=== PATIENT | male | born 1975 | race Caucasian/White ===

== ENCOUNTER 2020-03-06 09:56 | Inpatient (IN) | payer OTHER, SELFPAY ==
[2020-03-06] VITALS (32 sets, daily range): BP systolic 155–190; BP diastolic 89–117; PULSE 91–124; RESP 18–20; TEMP 36.7–37.1; O2SAT 88–100
--- NOTE | ~2020-03-06 | CT_ITS ---
EXAMINATION: CT abdomen pelvis w con DATE: 03/06/2020 11:39 INDICATION: Abdomen pain for 2 months. Nausea. TECHNIQUE: Computed tomography (CT) of the abdomen and pelvis was performed with 100 cc Omnipaque 350 intravenous contrast. The dose-length product was 1692.45 mGy-cm. Automated exposure control and ite rative reconstruction technique were employed. COMPARISON: None. FINDINGS: Lung bases are unremarkable. No significant pleural or pericardial effusion. Heart size nor mal. No significant vascular abnormality. No lymphadenopathy. There is thickening of the pancreatic head with surrounding fluid and inflammation, consistent with a cute pancreatitis. No evidence for wall off fluid collection to suggest abscess or pseudocyst. Nonobs tructive bowel gas pattern. No pelvic masses or fluid collections. Fatty infiltration of the liver. The spleen is enlarged. Gallbladder is present. Adrenal glands and k idneys are unremarkable. No acute osseous abnormality. Elevated right diaphragm. IMPRESSION: 1. Acute uncomplicated pancreatitis. 2: Splenomegaly. 3: Hepatic steatosis. Reviewed, dictated and finalized at location A.
--- NOTE | ~2020-03-06 | US_ITS ---
EXAMINATION: US right upper quadrant EXAM DATE: 03/06/2020 17:13 INDICATION: Elevated liver enzymes. TECHNIQUE: Multiple grayscale and Doppler images of the abdomen right upper quadrant were obtained (jordan rivero a technologist who performed the scan) and subsequently reviewed. There is no prior study for meghana franklin. FINDINGS: The pancreas is not visualized due to bowel gas. There is echogenic liver parenchyma with poor penet ration, hepatic steatosis. Liver measures 24 cm, enlarged. There are no focal liver lesions identifi ed. There is no evidence of intrahepatic biliary duct dilation. Portal venous flow was seen in the hepatopedal, normal direction and has normal Doppler waveform. No right-sided hydronephrosis. Common bile duct measures 4 mm, which is normal. The gallbladder wall is normal in thickness, with mo derate amount of distention. No sonographic evidence of pericholecystic fluid. There is no cholelit hiases. Technologist performing exam reports patient did not demonstrate sonographic Mad[place]'s sign. Please note that this sign is less reliable in patients who have received pain medication. IMPRESSION: 1. Hepatomegaly. 2. Hepatic steatosis. Reviewed, dictated and finalized at location A.
--- NOTE | ~2020-03-06 | CT_ITS ---
EXAMINATION: CT abdomen pelvis wo con DATE: 03/09/2020 09:19 INDICATION: Abdominal pain. Acute pancreatitis. TECHNIQUE: Computed tomography (CT) of the abdomen and pelvis was performed without intravenous contr ast. Automated exposure control and iterative reconstruction technique were employed. The dose-length product was 1706.69 mGy-cm. COMPARISON: CT abdomen and pelvis 03/06/2020, abdomen ultrasound 03/06/2020 FINDINGS: The visualized portions of the lung bases demonstrate mild atelectasis. Again seen is eleva tion of right hemidiaphragm. There are small pleural effusions. The heart size is normal. No pericard ial effusion. There is diffuse hepatic steatosis with focal sparing in the gallbladder fossa. The gal lbladder is distended. There is mild splenomegaly, which may be secondary to obesity. There is extens shelia fat stranding and a small volume of fluid around the pancreas that extends into the pelvis. The a drenal glands and kidneys are normal. There are no dilated loops of bowel. The appendix is not visual ized. There is mild periportal lymphadenopathy. There is mild thoracolumbar spondylosis. IMPRESSION: 1. Worsened acute interstitial pancreatitis. 2. Persisting gallbladder distention, which may be secondary to fasting or acute cholecystitis. 3. The small pleural effusions. 4. Diffuse hepatic steatosis. 5. Mild splenomegaly, which may be secondary to obesity. 6. Mild periportal lymphadenopathy, likely reactive. Reviewed, dictated and finalized at location E. IMPRESSION: 1. Worsened acute interstitial pancreatitis. 2. Persisting gallbladder distention, which may be secondary to fasting or acut e cholecystitis. 3. The small pleural effusions. 4. Diffuse hepatic steatosis. 5. Mild splenomegaly, which may be secondary to obesity. 6. Mild periportal lymphadenopathy, likely reactive.
--- NOTE | 2020-03-06 10:09 | ED.ABDPAIN ---
HPI - Abdominal Pain General Chief Complaint: Abdominal Pain Stated Complaint: abd pain Time Seen by Provider: 03/06/20 10:00 Source: RN notes reviewed History of Present Illness HPI narrative: Patient presents emergency department from home for abdominal pain. Patient states symptoms began last night. The pain is located in the upper abdomen does not radiate. States it is described as burning in nature associated with nausea denies any fevers or chills chest pain shortness of breath vomiting diarrhea or any other symptoms. Patient states he has had problems with intermittent heartburn over the past couple months. Related Data Allergies Allergy/AdvReac Type Severity Reaction Status Date / Time No Known Allergies Allergy Mild Verified 03/06/20 10:11 Review of Systems Review of Systems: Narrative: Gen.: Denies fevers or chills ENT: Denies congestion Respiratory: Denies shortness of breath or cough CV: Denies chest pain or palpitations GI: See HPI denies burning, urgency, frequency or hematuria Musculoskeletal: Denies back pain or muscle pain Neuro: Denies numbness, tingling, weakness or focal weakness Skin: Denies rash Except as documented, all other systems reviewed and negative [facility] Past Medical History Medical History (Updated 03/06/20 @ 12:48 by Willie Madsen DO) Patient denies significant medical history Surgical History Surgical History (Updated 08/15/19 @ 15:33 by Enresto Hart PA-C) History of appendectomy Social History Social History Smoking status: Current some day smoker Alcohol intake: never Gender identity (if verbalized by the patient): Male Exam Narrative: Exam Narrative: APPEARANCE: No acute distress, nontoxic, resting in bed HEENT: Normocephalic, atraumatic, OMM RESPIRATORY: No respiratory distress, clear to auscultation bilaterally with no rhonchi wheezing or rales CARDIOVASCULAR: RRR s murmur ABDOMINAL: Soft, nondistended, tender palpation epigastric and right upper quadrant, no tenderness in left upper quadrant, right lower quadrant left lower quadrant, no rebound or guarding MUSCULOSKELETAl: Moves all extremities. No clubbing, cyanosis or edema. NEURO: Awake and alert. Following commands, speech normal, no focal deficits SKIN:: Warm, dry. Normal Color PSYCHIATRIC: Normal affect/mood Course Course Emergency Course: Discussed with Dr Cardozo presentation and work-up. Agrees with admission at this time. Request patient be placed on sliding scale for hyperglycemia Discussed with patient and family results of workup and diagnosis. Discussed need for admission. Patient and family understand and agree to current treatment plan Vital Signs Vital signs: Vital Signs Temperature 98.6 F 03/06/20 10:08 Pulse Rate 91 03/06/20 10:08 Respiratory Rate 18 03/06/20 10:08 Blood Pressure 189/116 H 03/06/20 10:08 Pulse Oximetry 99 03/06/20 10:08 Temperature 98.6 F 03/06/20 10:08 Pulse Rate 91 03/06/20 10:08 Respiratory Rate 18 03/06/20 10:08 Blood Pressure 189/116 H 03/06/20 10:08 Pulse Oximetry 99 03/06/20 10:08 MDM - Abdominal Pain Lab Data Result diagrams: 03/06/20 10:41 03/06/20 10:53 Labs: Lab Results 03/06/20 03/06/20 03/06/20 Range/Units 10:11 10:11 10:41 WBC 13.9 H (4.5-10.0) K/mm3 RBC 5.17 (4.6-6.20) M/mm3 Hgb 17.9 (14.0-18.0) g/dL Hct 41.4 L (42.0-52.0) % MCV 80.1 (80-100) fl MCH 34.6 H (26-34) pg MCHC 43.2 H (32-36) g/dl RDW 13.6 (11.5-14.5) % Plt Count 188 (150-375) k/mm3 MPV 11.7 H (7.4-10.4) fl Immature Gran % (Auto) 0.9 H (0-0.5) % Neut % (Auto) 84.9 H (45.5-73.1) % Lymph % (Auto) 7.3 L (18.3-44.2) % Wilcox % (Auto) 6.4 (2.6-8.5) % Eos % (Auto) 0.3 (0-4.4) % Baso % (Auto) 0.2 (0.2-1.2) % Lymph # (Auto) 1.01 (0.9-3.2) K/mm3 Wilcox # (Auto) 0.9 H (0.1-
[2020-03-06] MEDS: FAMOTIDINE 20 MG/2 ML VIAL IV PUSH ×2 (10:16→20:10)
[2020-03-06] MEDS: SODIUM CHLORIDE 0.9% IV 1,000 ML 999 ML IV CONT ×2 (10:16→11:45)
[2020-03-06] MEDS: KETOROLAC 30 MG/ML VIAL (*BKC) IV PUSH (10:16)
[2020-03-06] MEDS: ONDANSETRON INJ 4 MG/2 ML VIAL IV PUSH ×2 (10:17→14:18)
[2020-03-06 10:23] LABS: Add Urine Microscopic? YES; Appearance Urine Clear (Clear); Bilirubin Urine Negative (Negative); Blood Urine Negative (Negative); Color Urine Straw (Yellow); Glucose Urine UA 3+ mg/dL (Negative); Ketones Urine Trace mg/dL (Negative); Leukocyte Esterase Ur Negative LEU/UL (Negative); Nitrate Urine Negative (Negative); Protein Urine 2+ mg/dL (Negative); RBC Urine 0-2 /hpf (0-2); Specific Grav Ur 1.032 (1.001-1.035); Urobilinogen Urine Negative mg/dL (<2.0); WBC Urine 0-3 /hpf
[2020-03-06 10:34] LABS: Alanine Aminotransferase 116 U/L (4-50); Albumin Level 4.4 g/dL (3.5-5.1); Alkaline Phosphatase 141 U/L (38-126); Aspartate Amino Transferase 93 U/L (17-59); Bilirubin,Total 1.8 mg/dL (0.2-1.3); Blood Urea Nitrogen 19 mg/dL (9-20); Calcium 8.6 mg/dL (8.4-10.2); Carbon Dioxide 17 mmol/L (22-30); Chloride 101 mmol/L (98-107); Estimated CRCL calculation 152 ml/min; Estimated Glomerular Filt Rate > 60; Glucose 434 mg/dL (75-110); Lipase 569 U/L (23-300); Potassium 5.7 mmol/L (3.4-5.0); Sodium 130 mmol/L (137-145)
[2020-03-06 10:51] LABS: Basophils Percent Auto 0.2 % (0.2-1.2); Eosinophils Percent Auto 0.3 % (0-4.4); Hematocrit 41.4 % (42.0-52.0); Hemoglobin 17.9 g/dL (14.0-18.0); Immature Granulocyte Absolute 0.12 K/mm3 (0.00-0.031); Immature Granulocyte Percent A 0.9 % (0-0.5); Lymphocytes Absolute Auto 1.01 K/mm3 (0.9-3.2); Lymphocytes Percent Auto 7.3 % (18.3-44.2); Mean Corpuscular HGB Conc 43.2 g/dl (32-36); Mean Corpuscular Hemoglobin 34.6 pg (26-34); Mean Corpuscular Volume 80.1 fl (80-100); Mean Platelet Volume 11.7 fl (7.4-10.4); Monocytes Absolute Auto 0.9 K/mm3 (0.1-0.6); Monocytes Percent Auto 6.4 % (2.6-8.5); Neutrophils Absolute Auto 11.8 K/mm3 (1.3-6.7); Neutrophils Percent Auto 84.9 % (45.5-73.1); Platelet Count Result 188 k/mm3 (150-375); Red Blood Count 5.17 M/mm3 (4.6-6.20); Red Cell Distribution Width 13.6 % (11.5-14.5); White Blood Count 13.9 K/mm3 (4.5-10.0)
[2020-03-06 11:08] LABS: Potassium 5.1 mmol/L (3.4-5.0)
[2020-03-06] MEDS: MORPHINE SULFATE 4 MG/ML INJ IV PUSH ×2 (11:26→14:00)
[2020-03-06 12:07] LABS: Glucose Point of Care 402 (65-105)
[2020-03-06] MEDS: INSULIN ASPART (*BKC) 100 UNITS/ML 6 UNITS SUB-Q (12:14)
[2020-03-06] MEDS: SODIUM CHLORIDE 0.9% IV 1,000 ML 150 ML IV CONT ×2 (12:16→19:20)
[2020-03-06 13:41] LABS: Glucose Point of Care 381 (65-105)
[2020-03-06] MEDS: hydrALAZINE HCL 20 MG/ML VIAL 10 MG IV PUSH ×2 (14:00→16:37)
--- NOTE | 2020-03-06 14:59 | PM.IMHP ---
H&P: HPI History of Present Illness Chief complaint: Pancreatitis Narrative: Cuba Brown is a 44 year old male who has no prior history of having any gallbladder disease or diabetes. The patient came to the emergency room due to abdominal pain. Patient stated that his pain started last night. He just remembers eating chips and salsa last night and that is when his pain started. He did take some Pepto-Bismol without any relief. He stated he has had this be a couple times before and a resolved on his own. Usually it is in relation to food. Patient stated he felt distended and had epigastric discomfort. He has been having some problems with intermittent heartburn over the last couple months. He thinks that maybe he took an aspirin are Tylenol as well possibly extra-strength Tylenol yesterday. Patient is afebrile. His blood pressure was elevated 189/116. In the emergency room for the elevated blood pressure he was also given insulin for the elevated blood sugar. He was given morphine in ER but the patient stated that he just was not lasting the whole 2 hours. He was also given Toradol the patient still having some severe discomfort. His liver enzymes are elevated.Bilirubin is 1.8 AST 93 ALT 116 alkaline phosphatase 141 total protein 9.0 and lipase 569. Patient denies any alcohol use. Date of service is 03/06/2020 Review of Systems Review of Systems: All systems reviewed & are unremarkable except as noted in HPI and below Constitutional: Constitutional: Reports as per HPI and Reports no additional constitutional complaints Eyes: Eyes: Reports as per HPI and Reports no additional eye complaints ENT: Reports system reviewed and no additional complaints, except as documented and Reports Normal hearing present Cardiovascular: Cardiovascular: Reports no additional cardiovascular complaints Respiratory: Respiratory: Reports no additional respiratory complaints and Reports no additional respiratory complaints Gastrointestinal: Gastrointestinal: Reports as per HPI and Reports no additional gastrointestinal complaints Musculoskeletal: Musculoskeletal: Reports no additional musculoskeletal complaints Integumentary/Breasts: Skin/Breast: Reports system reviewed and no additional complaints, except as docu and Reports as per HPI Neurologic: Reports system reviewed and no additional complaints, except as documented, Reports as per HPI and Reports Normal hearing present Psychiatric: Psychiatric: Reports no additional psychiatric complaints and Reports as per HPI Endocrine: Endocrine: Reports no additional endocrine complaints Hematologic/Lymphatic: Hematologic/Lymphatic: Reports no additional hematologic/lymphatic complaints Allergic/Immunologic: Allergic/Immunologic: Reports no additional allergic/immunologic complaints PMFSH Past Medical History Medical History (Updated 03/06/20 @ 15:09 by Charlotte Lu NP) Chronic GERD Patient denies significant medical history Surgical History Surgical History (Updated 03/06/20 @ 15:09 by Charlotte Lu NP) History of ankle surgery ORIF with screws History of appendectomy Family History Family History (Updated 03/06/20 @ 15:10 by Charlotte Lu NP) Mother Cerebrovascular accident Diabetes mellitus Social History Social History (Updated 03/06/20 @ 15:11 by Charlotte Lu NP) Social History: The patient tells me that he does not drink alcohol or use any illicit drugs. No marijuana. He works for the [employer]. 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 He has 2 children. He stated that he used to smoke but no longer does. Smoking status: Former smoker Alcohol intake: former Substance use: never Living arrangements: with family Occupation/Education: occupation Gender identity (if verbalized by the patient): Male Meds Home Medications and Allergies Home Medications Medication Instructi
[2020-03-06] MEDS: HYDROMORPHONE HCL 1 MG/ML INJ IV PUSH ×3 (15:53→22:45)
--- NOTE | 2020-03-06 16:07 | ADMGEN ---
This patient, Cuba Brown, was admitted to 2 Medical Room 240-. Patient/family oriented to hospital policies and general routines including ID bracelet, bed and alarms, visiting hours, pain management, procedures, bathroom and other care routines, personal items, smoking policy, room service/diet, and visiting hours. Valuables list has been completed. Information on how to activate the Rapid Response Team has been discussed. Patient/Family are encouraged to report perceived risks to care and to ask questions if they do not understand what they are told or what they should do.
[2020-03-06 16:08] LABS: Estimated CRCL calculation 159 ml/min; Estimated Glomerular Filt Rate > 60
[2020-03-06 16:13] LABS: Blood Urea Nitrogen 25 mg/dL (8-26); Carbon Dioxide 22 mmol/L (22-30); Chloride 108 mmol/L (98-109); Glucose 388 mg/dL (70-105); Potassium 4.5 mmol/L (3.5-4.9); Sodium 137 mmol/L (138-146)
[2020-03-06 17:34] LABS: Glucose Point of Care 344 (65-105)
[2020-03-06] MEDS: INSULIN ASPART (*BKC) 100 UNITS/ML SUB-Q ×2 (17:34→23:50)
[2020-03-06 17:44] LABS: Monoscreen Negative (Negative); Negative Monotest Control Negative (Negative); Positive Monotest Control Positive (Positive)
[2020-03-06 23:59] LABS: Glucose Point of Care 335 (65-105)
[2020-03-07] MEDS: SODIUM CHLORIDE 0.9% IV 1,000 ML 150 ML IV CONT ×4 (02:07→21:10)
[2020-03-07] MEDS: HYDROMORPHONE HCL 1 MG/ML INJ IV PUSH ×6 (02:09→21:08)
[2020-03-07] MEDS: INSULIN ASPART (*BKC) 100 UNITS/ML SUB-Q ×3 (05:13→16:38)
[2020-03-07 05:16] LABS: Glucose Point of Care 371 (65-105)
[2020-03-07 05:38] VITALS: BP 131/75; PULSE 116; RESP 16; TEMP 37.1; O2SAT 93
[2020-03-07 06:05] LABS: Basophils Absolute Auto 0.1 K/mm3 (0.0-0.1); Basophils Percent Auto 0.2 % (0.2-1.2); Hematocrit 48.3 % (42.0-52.0); Hemoglobin 16.7 g/dL (14.0-18.0); Immature Granulocyte Absolute 0.15 K/mm3 (0.00-0.031); Immature Granulocyte Percent A 0.6 % (0-0.5); Lymphocytes Absolute Auto 1.27 K/mm3 (0.9-3.2); Lymphocytes Percent Auto 5.1 % (18.3-44.2); Mean Corpuscular HGB Conc 34.6 g/dl (32-36); Mean Corpuscular Hemoglobin 28.5 pg (26-34); Mean Corpuscular Volume 82.4 fl (80-100); Mean Platelet Volume 12.4 fl (7.4-10.4); Monocytes Absolute Auto 2.6 K/mm3 (0.1-0.6); Monocytes Percent Auto 10.5 % (2.6-8.5); Neutrophils Absolute Auto 20.6 K/mm3 (1.3-6.7); Neutrophils Percent Auto 83.6 % (45.5-73.1); Platelet Count Result 253 k/mm3 (150-375); Red Blood Count 5.86 M/mm3 (4.6-6.20); Red Cell Distribution Width 14.4 % (11.5-14.5); White Blood Count 24.7 K/mm3 (4.5-10.0)
[2020-03-07] MEDS: FAMOTIDINE 20 MG/2 ML VIAL IV PUSH ×2 (08:23→20:44)
[2020-03-07 09:40] LABS: Alanine Aminotransferase 75 U/L (4-50); Albumin Level 3.3 g/dL (3.5-5.1); Alkaline Phosphatase 92 U/L (38-126); Aspartate Amino Transferase 47 U/L (17-59); Bilirubin,Total 0.8 mg/dL (0.2-1.3); Blood Urea Nitrogen 14 mg/dL (9-20); Calcium 6.6 mg/dL (8.4-10.2); Carbon Dioxide 23 mmol/L (22-30); Chloride 107 mmol/L (98-107); Cholesterol 232 mg/dL (0-200); Estimated CRCL calculation 179 ml/min; Estimated Glomerular Filt Rate > 60; Glucose 326 mg/dL (75-110); Potassium 4.2 mmol/L (3.4-5.0); Sodium 137 mmol/L (137-145)
--- NOTE | 2020-03-07 09:47 | PM.IMPN ---
Progress Note: A&P Assessment and Plan (1) Acute pancreatitis: Code(s): K85.90 - Acute pancreatitis without necrosis or infection, unspecified Status: Acute Assessment and Plan: Patient reports 3 episodes of similar discomfort in the past which was resolved on his own when he stopped eating for few days. He presented due to severe pain is epigastric area without any relief. This is most likely due to undiagnosed/untreated diabetes and hypertriglyceridemia in the 1499's. No acute signs of gallstone pancreatitis, no recent alcohol use. His CT scan showed acute pancreatitis Right upper quadrant ultrasound showed He was placed NPO on arrival and started on IV fluids and IV pain medications as needed. Today he is feeling better and still having intermittent pain. The patient would like to try drinking something and see how he tolerates it. I explained to him he needs to eat and drink very slowly and listen to his body and his pain. We will slowly advance his diet as tolerated starting with clear liquids at this time. Lipase this morning did increased from 569-3108. Will continue monitoring patient's symptoms. (2) Newly diagnosed diabetes: Code(s): E11.9 - Type 2 diabetes mellitus without complications Status: Acute Assessment and Plan: Patient came in with a glucose of 407 and not seen a doctor for years. Patient's hemoglobin A1c was 13%. Patient was started on Levemir 10 units this morning since he is NPO to see how his glucose runs. He is also receiving sliding scale insulin low-dose at this time Will order a dietitian consult as well the art educator consult for further information He will need insulin upon discharge as well as metformin. Explained the patient needs to monitor when he eats with a diabetic diet, weight loss, exercise. Continue monitoring glucose ACHS. Hypoglycemic protocol in place. (3) Elevated liver function tests: Code(s): R79.89 - Other specified abnormal findings of blood chemistry Status: Acute Assessment and Plan: Patient is a nondrinker. Most likely secondary to acute pancreatitis. CT scan and right upper quadrant ultrasound did not show any abnormality to his gallbladder or common bile duct dilation suggesting he has gallbladder pancreatitis. Today his total bili, AST, alkaline phosphatase all normalized. His ALT is still slightly elevated at 75. Will continue monitoring his liver function tests daily and if his pain becomes worse and LFTs and crease will consider a GI consultation for further evaluation. (4) Hepatic steatosis: Code(s): K76.0 - Fatty (change of) liver, not elsewhere classified Status: Acute Assessment and Plan: Right upper quadrant ultrasound showed hepatic steatosis and lipid panel showed elevated triglycerides and total cholesterol. Educated him on a low-fat diet in the future and trying to reverse his fatty liver disease. (5) Hypertriglyceridemia: Code(s): E78.1 - Pure hyperglyceridemia Status: Acute Assessment and Plan: Lipid panel was completed showing his triglycerides were 1427, most likely secondary to uncontrolled diabetes. Will start the patient on fenofibrate once a day and work on better controlling his diabetes. He will need another fasting lipid panel in 3 months. (6) Elevated blood-pressure reading without diagnosis of hypertension: Code(s): R03.0 - Elevated blood-pressure reading, without diagnosis of hypertension Status: Acute Assessment and Plan: Patient's blood pressure on arrival was 189/116. Patient states he was in severe pain. Today his blood pressure was 131/75 which is much improved. Will continue monitoring his blood
[2020-03-07 09:55] LABS: LDL Cholesterol Direct < 60 mg/dL
[2020-03-07 09:56] LABS: Lipase 3108 U/L (23-300); Triglycerides 1427 mg/dL (<150)
[2020-03-07 11:30] VITALS: BMI 38.8
[2020-03-07 11:43] LABS: Glucose Point of Care 386 (65-105)
--- NOTE | 2020-03-07 11:46 | PCDIET ---
Nutrition Consult for Diabetic Teaching. Diet order: NPO. HbA1c: 13.0%. Dx: Pancreatitis. See Nutritional Teaching Intervention. Thank you for the consult.
[2020-03-07] MEDS: FENOFIBRATE 160 MG TABLET PO (11:50)
[2020-03-07 14:00] VITALS: BP 131/68; PULSE 103; RESP 16; TEMP 37; O2SAT 96
[2020-03-07 18:16] LABS: Glucose Point of Care 314 (65-105)
[2020-03-07] MEDS: INSULIN DETEMIR 100 UNITS/ML 10 UNITS SUB-Q (20:44)
[2020-03-07 20:55] LABS: Glucose Point of Care 299 (65-105)
[2020-03-07 21:50] VITALS: BP 149/83; PULSE 119; RESP 18; TEMP 37.9; TEMP 38.7; O2SAT 95
[2020-03-07 22:49] VITALS: TEMP 37.8
[2020-03-07 22:50] VITALS: TEMP 37.8
[2020-03-08] MEDS: HYDROMORPHONE HCL 1 MG/ML INJ IV PUSH ×8 (00:20→21:54)
[2020-03-08] MEDS: SODIUM CHLORIDE 0.9% IV 1,000 ML 150 ML IV CONT ×3 (03:11→16:55)
[2020-03-08 05:17] LABS: Basophils Percent Auto 0.3 % (0.2-1.2); Eosinophils Absolute Auto 0.2 K/mm3 (0-0.3); Hematocrit 41.1 % (42.0-52.0); Hemoglobin 13.7 g/dL (14.0-18.0); Immature Granulocyte Percent A 0.6 % (0-0.5); Lymphocytes Absolute Auto 1.08 K/mm3 (0.9-3.2); Mean Corpuscular HGB Conc 33.3 g/dl (32-36); Mean Corpuscular Volume 83.9 fl (80-100); Mean Platelet Volume 12.3 fl (7.4-10.4); Monocytes Absolute Auto 2.3 K/mm3 (0.1-0.6); Neutrophils Absolute Auto 11.7 K/mm3 (1.3-6.7); Neutrophils Percent Auto 76.1 % (45.5-73.1); Platelet Count Result 187 k/mm3 (150-375); Red Cell Distribution Width 14.5 % (11.5-14.5); White Blood Count 15.4 K/mm3 (4.5-10.0)
[2020-03-08 05:29] LABS: Alanine Aminotransferase 52 U/L (4-50); Albumin Level 3.1 g/dL (3.5-5.1); Alkaline Phosphatase 84 U/L (38-126); Aspartate Amino Transferase 32 U/L (17-59); Bilirubin,Total 0.9 mg/dL (0.2-1.3); Blood Urea Nitrogen 13 mg/dL (9-20); Calcium 6.6 mg/dL (8.4-10.2); Carbon Dioxide 27 mmol/L (22-30); Chloride 103 mmol/L (98-107); Estimated CRCL calculation 159 ml/min; Estimated Glomerular Filt Rate > 60; Glucose 251 mg/dL (75-110); Lipase 634 U/L (23-300); Potassium 3.8 mmol/L (3.4-5.0); Sodium 135 mmol/L (137-145)
[2020-03-08 06:00] VITALS: BP 133/79; PULSE 111; RESP 16; TEMP 37.1; O2SAT 95
[2020-03-08 06:25] LABS: HAV RESULT Negative (Negative); HIV 1/2 Ab P24 Ag Result Negative (Negative); Hepatitis B Core IgM Result Negative (Negative); Hepatitis B Surface Antigen Negative (Negative)
[2020-03-08 06:30] LABS: Iron 19 ug/dL (49-181)
[2020-03-08 06:35] LABS: Hepatitis B Surface Anti Res Negative
[2020-03-08 06:41] LABS: Hepatitis C Virus Antibody Negative (Negative)
[2020-03-08 06:45] LABS: Percent Iron Saturation 8 % (20-50)
[2020-03-08 07:41] LABS: Glucose Point of Care 252 (65-105)
[2020-03-08] MEDS: INSULIN DETEMIR 100 UNITS/ML 10 UNITS SUB-Q ×2 (08:09→20:59)
[2020-03-08] MEDS: INSULIN ASPART (*BKC) 100 UNITS/ML SUB-Q ×3 (08:09→16:50)
[2020-03-08] MEDS: FAMOTIDINE 20 MG/2 ML VIAL IV PUSH ×2 (08:13→20:59)
[2020-03-08] MEDS: FENOFIBRATE 160 MG TABLET PO (08:13)
--- NOTE | 2020-03-08 09:37 | PM.IMPN ---
Progress Note: A&P Assessment and Plan (1) Acute pancreatitis: Code(s): K85.90 - Acute pancreatitis without necrosis or infection, unspecified Status: Acute Assessment and Plan: Patient reports 3 episodes of similar discomfort in the past which was resolved on his own when he stopped eating for few days. He presented due to severe pain is epigastric area without any relief. This is most likely due to undiagnosed/untreated diabetes and hypertriglyceridemia in the 1499's. No acute signs of gallstone pancreatitis, no recent alcohol use. His CT scan showed acute pancreatitis Right upper quadrant ultrasound showed hepatomegaly and hepatic steatosis. Today, he still reports pain and has not been able to eat too much of the clear liquid diet secondary to pain. Will continue a clear liquid diet at this time and some light IV fluid hydration. Explained to the patient that he needs to get up and walk around. We will slowly advance his diet as tolerated. Lipase this morning did improve from 3108 to 634. Will continue monitoring patient's symptoms. (2) Abdominal distension: Code(s): R14.0 - Abdominal distension (gaseous) Status: Acute Assessment and Plan: Patient reports abdominal distension and decreased and his flatulence. He does have decreased bowel sounds in all 4 quadrants. Will get a KUB to rule out any acute ileus versus obstruction. I told him to get up and walk around the halls and be more active today did stimulate his bowels. If KUB shows constipation will add medications. Continue monitoring. (3) Leukocytosis: Code(s): D72.829 - Elevated white blood cell count, unspecified Status: Acute Assessment and Plan: Patient has elevated white blood cell count since arrival. Most likely secondary to acute pain, but patient did have a fever last night. Will continue monitoring his leukocytosis and fevers. Consider repeat CT scan if this continues to rule out any abscess or other acute infection. (4) Newly diagnosed diabetes: Code(s): E11.9 - Type 2 diabetes mellitus without complications Status: Acute Assessment and Plan: Patient came in with a glucose of 407 and not seen a doctor for years. Patient's hemoglobin A1c was 13%. Patient was started on Levemir 10 units q.12 since he is not eating very much He is also receiving sliding scale insulin high-dose at this time used equipment sales representative evaluated the patient and gave him a glucometer. Will order a dietitian consult He will need insulin upon discharge as well as metformin. Explained the patient needs to monitor when he eats with a diabetic diet, weight loss, exercise. Continue monitoring glucose ACHS. Hypoglycemic protocol in place. (5) Elevated liver function tests: Code(s): R79.89 - Other specified abnormal findings of blood chemistry Status: Acute Assessment and Plan: Patient is a nondrinker. Most likely secondary to acute pancreatitis. CT scan and right upper quadrant ultrasound did not show any abnormality to his gallbladder or common bile duct dilation suggesting he has gallbladder pancreatitis. Today his total bili, AST, alkaline phosphatase all normalized. His ALT is still slightly elevated at 52. Will continue monitoring his liver function tests daily and if his pain becomes worse and LFTs and crease will consider a GI consultation for further evaluation. (6) Hepatic steatosis: Code(s): K76.0 - Fatty (change of) liver, not elsewhere classified Status: Acute Assessment and Plan: Right upper quadrant ultrasound showed hepatic steatosis and lipid panel showed elevated triglycerides and total cholesterol. Educated him on a low-fat diet
[2020-03-08 10:09] LABS: Folic Acid 3.9 ng/mL (2.76->20)
[2020-03-08 11:20] LABS: Glucose Point of Care 248 (65-105)
[2020-03-08 13:50] VITALS: BP 156/77; PULSE 114; RESP 18; TEMP 37.2; O2SAT 96
[2020-03-08 16:40] LABS: Glucose Point of Care 224 (65-105)
[2020-03-08 21:09] LABS: Glucose Point of Care 220 (65-105)
[2020-03-08 22:00] VITALS: BP 164/76; PULSE 114; RESP 20; TEMP 37.3; O2SAT 95
[2020-03-08 23:25] VITALS: TEMP 37.4
[2020-03-09] MEDS: SODIUM CHLORIDE 0.9% IV 1,000 ML 150 ML IV CONT ×2 (00:38→07:04)
[2020-03-09] MEDS: HYDROMORPHONE HCL 1 MG/ML INJ IV PUSH ×8 (00:58→22:36)
[2020-03-09 05:01] LABS: Basophils Absolute Auto 0.1 K/mm3 (0.0-0.1); Basophils Percent Auto 0.4 % (0.2-1.2); Eosinophils Absolute Auto 0.2 K/mm3 (0-0.3); Eosinophils Percent Auto 1.7 % (0-4.4); Hematocrit 38.5 % (42.0-52.0); Hemoglobin 12.7 g/dL (14.0-18.0); Immature Granulocyte Absolute 0.14 K/mm3 (0.00-0.031); Immature Granulocyte Percent A 1.1 % (0-0.5); Lymphocytes Absolute Auto 1.19 K/mm3 (0.9-3.2); Lymphocytes Percent Auto 9.2 % (18.3-44.2); Mean Corpuscular Hemoglobin 27.5 pg (26-34); Mean Corpuscular Volume 83.5 fl (80-100); Monocytes Absolute Auto 1.9 K/mm3 (0.1-0.6); Monocytes Percent Auto 14.9 % (2.6-8.5); Neutrophils Absolute Auto 9.5 K/mm3 (1.3-6.7); Neutrophils Percent Auto 72.7 % (45.5-73.1); Platelet Count Result 164 k/mm3 (150-375); Red Blood Count 4.61 M/mm3 (4.6-6.20); Red Cell Distribution Width 14.1 % (11.5-14.5)
[2020-03-09 05:11] LABS: Alanine Aminotransferase 42 U/L (4-50); Albumin Level 3.1 g/dL (3.5-5.1); Alkaline Phosphatase 86 U/L (38-126); Aspartate Amino Transferase 29 U/L (17-59); Bilirubin,Total 0.9 mg/dL (0.2-1.3); Blood Urea Nitrogen 9 mg/dL (9-20); Calcium 7.7 mg/dL (8.4-10.2); Carbon Dioxide 27 mmol/L (22-30); Chloride 103 mmol/L (98-107); Estimated CRCL calculation 206 ml/min; Estimated Glomerular Filt Rate > 60; Glucose 209 mg/dL (75-110); Lipase 135 U/L (23-300); Potassium 3.4 mmol/L (3.4-5.0); Sodium 136 mmol/L (137-145)
[2020-03-09 06:00] VITALS: BP 151/89; PULSE 92; RESP 20; TEMP 36.6; O2SAT 94
[2020-03-09 07:43] LABS: Glucose Point of Care 181 (65-105)
[2020-03-09] MEDS: FENOFIBRATE 160 MG TABLET PO (09:02)
[2020-03-09] MEDS: FAMOTIDINE 20 MG/2 ML VIAL IV PUSH ×2 (09:02→20:17)
[2020-03-09] MEDS: INSULIN DETEMIR 100 UNITS/ML 10 UNITS SUB-Q ×2 (09:06→20:21)
--- NOTE | 2020-03-09 09:08 | PC.NURSE ---
Pt to CT via wheelchair.
--- NOTE | 2020-03-09 09:31 | PC.NURSE ---
Pt returned from CT via wheelchair.
[2020-03-09 11:13] LABS: Glucose Point of Care 256 (65-105)
[2020-03-09] MEDS: INSULIN ASPART (*BKC) 100 UNITS/ML SUB-Q ×2 (11:46→16:23)
--- NOTE | 2020-03-09 14:51 | P.PNIM_ITS ---
Progress Note: A&P Assessment and Plan (1) Acute pancreatitis: Code(s): K85.90 - Acute pancreatitis without necrosis or infection, unspecified Status: Acute Assessment and Plan: Patient reports 3 episodes of similar discomfort in the past which was resolved on his own when he stopped eating for few days. He presented due to severe pain is epigastric area without any relief. This is most likely due to undiagnosed/untreated diabetes and hypertriglyceridemia in the 1500's. No acute signs of gallstone pancreatitis, no recent alcohol use. * His CT scan showed acute pancreatitis * Right upper quadrant ultrasound showed hepatomegaly and hepatic steatosis. * Today, he still reports pain and has not been able to eat too much of the clear liquid diet secondary to pain. * Patient's lipase was completely normal at 135. * I repeated his CT scan of his abdomen secondary to his pain, fever from the other day, and not advancing his diet. * CT abdomen showed acute interstitial pancreatitis. Persistent gallbladder d istension most likely secondary to fasting. I talked to the radiologist who states there is some fluid and edema around the pancreas, and there is no signs of any findings suggestive of acute cholecystitis. There is no gallbladder wall thickening or ductal dilation. * Will advance the patient's diet to full liquids and see how he tolerates it * Will also get GI involved secondary to the patient's pain and worsening pancreatitis symptoms and see if they recommend any other adjustments. Will continue monitoring patient's symptoms. (2) Abdominal distension: Code(s): R14.0 - Abdominal distension (gaseous) Status: Acute Assessment and Plan: Patient reports abdominal distension and decreased and his flatulence. * Abdominal distension is improved today per the patient. * CT abdomen does not show any signs of ileus, obstruction, or constipation. * Instructed the patient to continue moving around, eating and drinking as tolerated Continue monitoring. (3) Leukocytosis: Code(s): D72.829 - Elevated white blood cell count, unspecified Status: Acute Assessment and Plan: Patient has elevated white blood cell count since arrival. Most likely secondary to acute pain * Leukocytosis improved to 13,000 today with a normal neutrophil count. * Repeat CT abdomen shows no acute infection at this time or abscess. Will continue monitoring his leukocytosis and vital signs (4) Newly diagnosed diabetes: Code(s): E11.9 - Type 2 diabetes mellitus without complications Status: Acute Assessment and Plan: Patient came in with a glucose of 407 and not seen a doctor for years. Patient's hemoglobin A1c was 13%. * Serum glucose was 209 this morning * Patient was started on Levemir 10 units q.12 since he is not eating very much * He is also receiving sliding scale insulin high-dose at this time * asthma educator evaluated the patient and gave him a glucometer. * Will order a dietitian consult * He will need insulin upon discharge as well as metformin. * Explained the patient needs to monitor when he eats with a diabetic diet, weight loss, exercise. Continue monitoring glucose ACHS. Hypoglycemic protocol in place. (5) Elevated liver function tests: Code(s): R79.89 - Other specified abnormal findings of blood chemistry Status: Acute Assessment and Plan: Patient is a nondrinker. Mo
--- NOTE | 2020-03-09 14:51 | PM.IMPN ---
Progress Note: A&P Assessment and Plan (1) Acute pancreatitis: Code(s): K85.90 - Acute pancreatitis without necrosis or infection, unspecified Status: Acute Assessment and Plan: Patient reports 3 episodes of similar discomfort in the past which was resolved on his own when he stopped eating for few days. He presented due to severe pain is epigastric area without any relief. This is most likely due to undiagnosed/untreated diabetes and hypertriglyceridemia in the 1499's. No acute signs of gallstone pancreatitis, no recent alcohol use. His CT scan showed acute pancreatitis Right upper quadrant ultrasound showed hepatomegaly and hepatic steatosis. Today, he still reports pain and has not been able to eat too much of the clear liquid diet secondary to pain. Patient's lipase was completely normal at 135. I repeated his CT scan of his abdomen secondary to his pain, fever from the other day, and not advancing his diet. CT abdomen showed acute interstitial pancreatitis. Persistent gallbladder distension most likely secondary to fasting. I talked to the radiologist who states there is some fluid and edema around the pancreas, and there is no signs of any findings suggestive of acute cholecystitis. There is no gallbladder wall thickening or ductal dilation. Will advance the patient's diet to full liquids and see how he tolerates it Will also get GI involved secondary to the patient's pain and worsening pancreatitis symptoms and see if they recommend any other adjustments. Will continue monitoring patient's symptoms. (2) Abdominal distension: Code(s): R14.0 - Abdominal distension (gaseous) Status: Acute Assessment and Plan: Patient reports abdominal distension and decreased and his flatulence. Abdominal distension is improved today per the patient. CT abdomen does not show any signs of ileus, obstruction, or constipation. Instructed the patient to continue moving around, eating and drinking as tolerated Continue monitoring. (3) Leukocytosis: Code(s): D72.829 - Elevated white blood cell count, unspecified Status: Acute Assessment and Plan: Patient has elevated white blood cell count since arrival. Most likely secondary to acute pain Leukocytosis improved to 13,000 today with a normal neutrophil count. Repeat CT abdomen shows no acute infection at this time or abscess. Will continue monitoring his leukocytosis and vital signs (4) Newly diagnosed diabetes: Code(s): E11.9 - Type 2 diabetes mellitus without complications Status: Acute Assessment and Plan: Patient came in with a glucose of 407 and not seen a doctor for years. Patient's hemoglobin A1c was 13%. Serum glucose was 209 this morning Patient was started on Levemir 10 units q.12 since he is not eating very much He is also receiving sliding scale insulin high-dose at this time family life educator evaluated the patient and gave him a glucometer. Will order a dietitian consult He will need insulin upon discharge as well as metformin. Explained the patient needs to monitor when he eats with a diabetic diet, weight loss, exercise. Continue monitoring glucose ACHS. Hypoglycemic protocol in place. (5) Elevated liver function tests: Code(s): R79.89 - Other specified abnormal findings of blood chemistry Status: Acute Assessment and Plan: Patient is a nondrinker. Most likely secondary to acute pancreatitis. CT scan and right upper quadrant ultrasound did not show any abnormality to his gallbladder or common bile duct dilation suggesting he has gallbladder pancreatitis. Today his total bili, AST, ALT, alkaline phosphatase all normalized. CT Abd today shows now gallbladder issues contributing to his pain. Fam
--- NOTE | 2020-03-09 14:51 | WPDGICN ---
Assessment and Plan Assessment and plan (1) Acute pancreatitis: Qualifiers: Pancreatitis type: unspecified pancreatitis type Acute pancreatitis complication: unspecified Qualified Code(s): K85.90 - Acute pancreatitis without necrosis or infection, unspecified Code(s): K85.90 - Acute pancreatitis without necrosis or infection, unspecified Status: Acute Assessment and Plan: here with new episode of pancreatitis, probably related to high TG and new diagnosis of diabetes, also noted elevated bili 1.8 on admission but now normal (may have passed stone), ultrasound normal bile duct size but distended GB. Will also call surgery. liquid diet as tolerated for now until less pain continue with medical treatment (2) Elevated liver function tests: Code(s): R79.89 - Other specified abnormal findings of blood chemistry Status: Acute Assessment and Plan: transient, normal now also fatty liver hepatitis panel negative, denies etoh use (3) Newly diagnosed diabetes: Code(s): E11.9 - Type 2 diabetes mellitus without complications Status: Acute Assessment and Plan: by primary team (4) Hypertriglyceridemia: Code(s): E78.1 - Pure hyperglyceridemia Status: Acute Assessment and Plan: will need medical treatment, probably cause of pancreatitis (5) Hepatic steatosis: Code(s): K76.0 - Fatty (change of) liver, not elsewhere classified Status: Acute (6) Splenomegaly: Code(s): R16.1 - Splenomegaly, not elsewhere classified Status: Acute (7) Abdominal distension: Code(s): R14.0 - Abdominal distension (gaseous) Status: Acute Assessment and Plan: from pancreatitis. If persistent then we can do EGD GI Consult Note Consult date/time: 03/09/20 14:51 Reason for consult: pancreatitis, bloating HPI: Cuba Brown is a 44 year old male who has not seen a doctor in a while and not using medication in regular basis who was admitted to the hospital with new onset of severe pain in upper abdomen after eating chips and salsa, used Pepto-Bismol without any relief, also nausea. He had similar episode few months ago but resolved and did not have to come to the hospital. He came to ER, found to have hyperglicemia and diagnosed with diabetes, also elevated liver enzymes with bilirubin 1.8, AST 93, ALT 116 and lipase 560 next day 3000, also leukocytosis. Liver enzymes now normal. CT scan showed pancreatitis but had leukocytosis with more pain thus a new CT scan ordered today by hospitalist that showed worsened acute interstitial pancreatitis, persisting gallbladder distention, diffuse hepatic steatosis. Also had elevated TG 1400. He does not drink etoh. Never had scopes. Review of Systems Constitutional: Constitutional: Denies chills and Denies headache(s) Eyes: Eyes: Denies blurry vision ENT: Reports Normal hearing present, Denies headache(s) and Denies neck pain Cardiovascular: Cardiovascular: Denies chest pain and Denies dyspnea Respiratory: Respiratory: Denies dyspnea Gastrointestinal: Gastrointestinal: Reports abdominal pain and Reports nausea Genitourinary: Genitourinary: Denies dysuria Musculoskeletal: Musculoskeletal: Denies neck pain Integumentary/Breasts: Skin/Breast: Denies dry skin Neurologic: Reports Normal hearing present, Denies headache(s) and Denies weakness Psychiatric: Psychiatric: Denies anxiety Endocrine: Endocrine: Denies change in body appearance Hematologic/Lymphatic: Hematologic/Lymphatic: Denies easy bleeding Allergic/Immunologic: Allergic/Immunologic: Denies urticaria PMFSH Past Medical History Medical History (Updated 03/09/20 @ 15:01 by Supa Calhoun MD) Chronic GERD Patient denies significant medical history Surgical History Surgical History (Updated 03/06/20 @ 15:09 by Charlotte Lu NP) History of ankle surgery ORIF with screws History of appendectomy Fa
[2020-03-09 15:23] VITALS: BP 186/101; PULSE 108; RESP 18; TEMP 37.2; O2SAT 96
[2020-03-09 16:19] VITALS: BP 168/95
[2020-03-09] MEDS: hydrALAZINE HCL 20 MG/ML VIAL 10 MG IV PUSH (16:22)
[2020-03-09 16:37] LABS: Glucose Point of Care 220 (65-105)
--- NOTE | 2020-03-09 17:37 | PM.CNGS ---
Assessment and Plan Assessment and plan (1) Acute pancreatitis: Onset Date: ~03/06/20 Qualifiers: Acute pancreatitis complication: unspecified Pancreatitis type: unspecified pancreatitis type Qualified Code(s): K85.90 - Acute pancreatitis without necrosis or infection, unspecified Code(s): K85.90 - Acute pancreatitis without necrosis or infection, unspecified Status: Acute Assessment and Plan: This is the main reason that I am asked to see the patient. So far the most likely etiologic agent is the elevated triglycerides. Patient strictly denies use of significant alcohol. He has no signs of stones on either the CT scan or the ultrasound that he has had. If his pancreatitis does not improve perhaps the MRCP is reasonable to rule out a single stone moving from the gallbladder into the bile duct. There is some chance he may have also passed a stone. Will work with you and GI to follow the patient. For now I agree with gradually advancing his diet and following his lipase. He has an unusual worsening picture on CT scan when the chemical picture of the decreasing lipase and liver enzymes is present. Patient did admit to me that he had started taking cexn-jbc-[id number] H2 ronda or PPI but neither of these typically lead to a side effect of pancreatitis from a med. He will check with his on the names of these. Right now I believe the most likely reason for his pancreatitis is his high lipids. If he worsens would consider MRCP to look at the bile duct to be sure there is not a single stone as noted above. (2) Hepatic steatosis: Onset Date: Unknown Code(s): K76.0 - Fatty (change of) liver, not elsewhere classified Status: Acute Assessment and Plan: Most likely due to his overweight status and possible related to the now known diabetes. I would suggest patient go on a strict diabetic diet and try to lose weight. (3) Leukocytosis: Onset Date: ~03/06/20 Code(s): D72.829 - Elevated white blood cell count, unspecified Status: Acute Assessment and Plan: Unknown etiology (4) Hypertriglyceridemia: Onset Date: Unknown Code(s): E78.1 - Pure hyperglyceridemia Status: Acute Assessment and Plan: Unknown etiology (5) Newly diagnosed diabetes: Onset Date: Unknown Code(s): E11.9 - Type 2 diabetes mellitus without complications Status: Acute Assessment and Plan: Had a glucose of 450 upon evaluation in the ED. He will need continued follow-up and treatment for this. (6) Splenomegaly: Onset Date: ~03/06/20 Code(s): R16.1 - Splenomegaly, not elsewhere classified Status: Acute Assessment and Plan: Unknown etiology, Monospot is negative there is no lymphadenopathy on CT scan to suggest lymphoma at this time period hepatitis profile is negative and there is no signs of ascites or cirrhosis to suggest that would be the reason for this. (7) Elevated blood-pressure reading without diagnosis of hypertension: Onset Date: Unknown Code(s): R03.0 - Elevated blood-pressure reading, without diagnosis of hypertension Status: Acute Assessment and Plan: On [place] medication. This may be because of his pain however will need to be monitored and perhaps he will need a level 1 drug when he goes home to follow up with his PCP and be sure he does not have new onset hypertension. (8) Obesity, Class II, BMI 35-39.9, isolated (see actual BMI): Code(s): E66.9 - Obesity, unspecified Status: Acute Assessment and Plan: have encouraged the patient to follow a low-fat diabetic diet upon discharge in order to try to reduce his BMI. This could lead to improvement in both his hypertension and diabetes. Additional Plan For now I see no indications for surgery. If patient worsens with gradual increase in diet consider MRCP to look at the pancreas differently and to be sure that there
[2020-03-09 17:45] VITALS: BP 179/98
[2020-03-09] MEDS: SODIUM CHLORIDE 0.9% IV 1,000 ML 75 ML IV CONT (20:17)
[2020-03-09] MEDS: polyethylene glycoL 3350 17 GM POWD.PACK PO (20:17)
[2020-03-09 21:15] LABS: Glucose Point of Care 182 (65-105)
[2020-03-09 22:00] VITALS: BP 157/83; PULSE 95; RESP 18; TEMP 37.1; O2SAT 94
[2020-03-10] MEDS: HYDROMORPHONE HCL 1 MG/ML INJ IV PUSH ×2 (01:58→05:01)
[2020-03-10 03:00] VITALS: BP 184/103; PULSE 102; RESP 20; TEMP 36.5; O2SAT 92
[2020-03-10] MEDS: LORAZEPAM INJ 2 MG/ML VIAL 0.5 MG IV PUSH (04:17)
[2020-03-10] MEDS: hydrALAZINE HCL 20 MG/ML VIAL 10 MG IV PUSH ×2 (05:03→14:03)
[2020-03-10 06:07] LABS: Basophils Percent Auto 0.3 % (0.2-1.2); Eosinophils Absolute Auto 0.3 K/mm3 (0-0.3); Eosinophils Percent Auto 1.9 % (0-4.4); Hematocrit 37.5 % (42.0-52.0); Hemoglobin 12.7 g/dL (14.0-18.0); Immature Granulocyte Absolute 0.29 K/mm3 (0.00-0.031); Immature Granulocyte Percent A 1.9 % (0-0.5); Lymphocytes Absolute Auto 1.33 K/mm3 (0.9-3.2); Lymphocytes Percent Auto 8.9 % (18.3-44.2); Mean Corpuscular HGB Conc 33.9 g/dl (32-36); Mean Corpuscular Hemoglobin 27.6 pg (26-34); Mean Corpuscular Volume 81.5 fl (80-100); Mean Platelet Volume 11.9 fl (7.4-10.4); Monocytes Absolute Auto 2.2 K/mm3 (0.1-0.6); Monocytes Percent Auto 14.6 % (2.6-8.5); Neutrophils Absolute Auto 10.8 K/mm3 (1.3-6.7); Neutrophils Percent Auto 72.4 % (45.5-73.1); Platelet Count Result 183 k/mm3 (150-375); Red Cell Distribution Width 13.7 % (11.5-14.5); White Blood Count 14.9 K/mm3 (4.5-10.0)
[2020-03-10 06:17] VITALS: BP 178/94; PULSE 102; RESP 20; TEMP 36.3; O2SAT 93
[2020-03-10 06:22] LABS: Alanine Aminotransferase 47 U/L (4-50); Albumin Level 3.2 g/dL (3.5-5.1); Alkaline Phosphatase 105 U/L (38-126); Aspartate Amino Transferase 44 U/L (17-59); Bilirubin,Total 1.2 mg/dL (0.2-1.3); Blood Urea Nitrogen 10 mg/dL (9-20); Calcium 8.2 mg/dL (8.4-10.2); Carbon Dioxide 27 mmol/L (22-30); Chloride 100 mmol/L (98-107); Estimated CRCL calculation 206 ml/min; Estimated Glomerular Filt Rate > 60; Glucose 198 mg/dL (75-110); Lipase 87 U/L (23-300); Potassium 3.2 mmol/L (3.4-5.0); Sodium 135 mmol/L (137-145)
[2020-03-10] MEDS: FAMOTIDINE 20 MG/2 ML VIAL IV PUSH ×2 (08:08→21:15)
[2020-03-10] MEDS: INSULIN DETEMIR 100 UNITS/ML 10 UNITS SUB-Q ×2 (08:08→21:15)
[2020-03-10] MEDS: FENOFIBRATE 160 MG TABLET PO (08:08)
[2020-03-10] MEDS: POTASSIUM CHLORIDE 20 MEQ TABLET 40 MEQ PO (08:15)
[2020-03-10] MEDS: polyethylene glycoL 3350 17 GM POWD.PACK PO ×2 (08:22→18:05)
[2020-03-10 09:07] LABS: Glucose Point of Care 195 (65-105)
--- NOTE | 2020-03-10 10:06 | PM.IMPN ---
Progress Note: A&P Assessment and Plan (1) Acute pancreatitis: Onset Date: ~03/06/20 Qualifiers: Acute pancreatitis complication: unspecified Pancreatitis type: unspecified pancreatitis type Qualified Code(s): K85.90 - Acute pancreatitis without necrosis or infection, unspecified Code(s): K85.90 - Acute pancreatitis without necrosis or infection, unspecified Status: Acute Assessment and Plan: Patient reports 3 episodes of similar discomfort in the past which was resolved on his own when he stopped eating for few days. He presented due to severe pain is epigastric area without any relief. This is most likely due to undiagnosed/untreated diabetes and hypertriglyceridemia in the 1499's. No acute signs of gallstone pancreatitis, no recent alcohol use. His CT scan showed acute pancreatitis on arrival Right upper quadrant ultrasound showed hepatomegaly and hepatic steatosis. Today, he is doing well with his diet advanced to a full liquid diet and is now tolerating oral pain medications. Patient states he does not want advanced the diet anymore today because he is still having pain after eating. Patient's lipase was completely normal at 87. I repeated his CT scan of his abdomen yesterday showing acute interstitial pancreatitis. Persistent gallbladder distension most likely secondary to fasting. I talked to the radiologist who states there is some fluid and edema around the pancreas, and there is no signs of any findings suggestive of acute cholecystitis. There is no gallbladder wall thickening or ductal dilation. I talked to the surgeon, Dr. Clemons, who recommended continuing monitoring the patient, stating that there is no acute signs on the CT scan that is showing his gallbladder is involved her acute car. I called the radiologist to further interpret his CT on arrival and CT from yesterday and he does not believe further workup is warranted at this time, and did not believe he has acute cholecystitis, and if symptoms continue or any other concerns that he would recommend an MRCP to be completed. I did consult Dr. Stark [facility] to evaluate the patient further secondary to his symptoms and pancreatitis and he consulted on surgery for further evaluation. At this time surgery and she I feel we need to continue monitoring the patient's labs, symptoms, vitals, and advance diet as tolerated. There is no more at this time that either of them would do. Will continue monitoring. (2) Abdominal distension: Code(s): R14.0 - Abdominal distension (gaseous) Status: Acute Assessment and Plan: Patient reports abdominal distension and decreased and his flatulence. Abdominal distension is improved today per the patient. CT abdomen does not show any signs of ileus, obstruction, or constipation. Instructed the patient to continue moving around, eating and drinking as tolerated MiraLax was added as well as p.r.n. Colace to see if it helps with his symptoms. Continue monitoring. (3) Leukocytosis: Onset Date: ~03/06/20 Code(s): D72.829 - Elevated white blood cell count, unspecified Status: Acute Assessment and Plan: Patient has elevated white blood cell count since arrival. Most likely secondary to acute pain Leukocytosis increased to 14,900 today, most likely secondary to pain, With a normal neutrophil count. Repeat CT abdomen shows no acute infection at this time or abscess. Will continue monitoring his leukocytosis and vital signs (4) Newly diagnosed diabetes: Onset Date: Unknown Code(s): E11.9 - Type 2 diabetes mellitus without complications Status: Acute Assessment and Plan: Patient came in with a glucose of 407 and not seen a doctor for years. Patient's hemoglobin A1c was 13%. Serum glucose was 198 this mor
[2020-03-10 11:33] LABS: Glucose Point of Care 243 (65-105)
[2020-03-10] MEDS: INSULIN ASPART (*BKC) 100 UNITS/ML SUB-Q ×2 (11:50→18:03)
--- NOTE | 2020-03-10 12:28 | WPDGIPROGNO ---
Progress Note: A&P Assessment and Plan (1) Acute pancreatitis: Onset Date: ~03/06/20 Qualifiers: Acute pancreatitis complication: unspecified Pancreatitis type: unspecified pancreatitis type Qualified Code(s): K85.90 - Acute pancreatitis without necrosis or infection, unspecified Code(s): K85.90 - Acute pancreatitis without necrosis or infection, unspecified Status: Acute Assessment and Plan: probably from uncontrolled DM and hyperTG normal liver enzymes now already started on treatment with insulin and also fibrated on liquid diet, advance low fat as tolerated appreciate surgical evaluation, mild distended GB but no stones and normal bile duct size, continue to monitor (2) Newly diagnosed diabetes: Onset Date: Unknown Code(s): E11.9 - Type 2 diabetes mellitus without complications Status: Acute Assessment and Plan: by primary team hbA1c 13 (3) Hypertriglyceridemia: Onset Date: Unknown Code(s): E78.1 - Pure hyperglyceridemia Status: Acute Assessment and Plan: start on treatment, will need diet as well and follow up with pcp/telephone service representative +/- endocrinology (4) Abdominal distension: Code(s): R14.0 - Abdominal distension (gaseous) Status: Acute (5) Leukocytosis: Onset Date: ~03/06/20 Qualifiers: Leukocytosis type: unspecified Qualified Code(s): D72.829 - Elevated white blood cell count, unspecified Code(s): D72.829 - Elevated white blood cell count, unspecified Status: Acute Assessment and Plan: probably from pancreatitis, continue to monitor (6) Hepatic steatosis: Onset Date: Unknown Code(s): K76.0 - Fatty (change of) liver, not elsewhere classified Status: Acute Assessment and Plan: metabolic syndrome, DM hepatitis panel negative. Subjective Date/time seen: 03/10/20 12:28 Interval history: still bloated, pain controlled with oral meds and tolerating liquid diet. He had BM this morning Review of Systems Review of Systems: All systems reviewed & are unremarkable except as noted in HPI and below Exam Const: General: comfortable and no acute distress HENMT: General nose exam: Normal nares present Eyes: General: appearance normal, both eyes and all related structures Neck: Neck: no JVD Resp: Auscultation: clear to auscultation bilaterally Cardio: Rate: regular rate Rhythm: regular rhythm GI: Inspection: distended GI Palp: Yes Soft to palpation and No Firmness to palpation present (GI) Auscultation: normal bowel sounds Other: no rebound, mild distended Skin: General skin exam: normal color Neuro: General: gait normal Speech: normal speech Extrem: General: normal to inspection Psych: Mental Status: mental status grossly normal Objective Data Vital Signs Vital Signs: Vital Signs - 24 hr 03/09/20 15:23 03/09/20 16:19 03/09/20 17:45 Temperature 98.9 F Pulse Rate 108 H Respiratory Rate 18 Blood Pressure 186/101 H 168/95 H 179/98 H Pulse Oximetry 96 03/09/20 22:00 03/10/20 03:00 03/10/20 06:17 Temperature 98.7 F 97.7 F 97.4 F L Pulse Rate 95 102 H 102 H Respiratory Rate 18 20 20 Blood Pressure 157/83 H 184/103 H 178/94 H Pulse Oximetry 94 92 93 Intake/Output Intake/Output: Intake & Output 03/07/20 03/08/20 03/09/20 03/10/20 23:59 23:59 23:59 23:59 Intake Total 5820 6345 4425 600 Output Total 1450 2100 1800 Balance 4370 4245 2625 600 Meds/Results Medications: Active Medications Generic Name Dose Route Start Last Admin Trade Name Freq PRN Reason Stop Dose Admin Acetaminophen 650 mg 03/10/20 07:07 Tylenol Tablet PO Q6H PRN Mild Pain (1-3) or Fever Hydrocodone Bitart/Acetaminophen 1 tab 03/09/20 19:19 03/10/20 06:53 [place] 5-325 Mg PO 1 tab Q4H PRN Administration Pain Rated 4-6 Hydrocodone Bitart/Acetaminophen 1 tab 03/10/20 07:07 03/10/20 11:26 [place] 7.5-3
[2020-03-10 14:00] VITALS: BP 168/96; PULSE 97; RESP 18; TEMP 36.8; O2SAT 98
--- NOTE | 2020-03-10 15:23 | PM.PNGS ---
Progress Note: A&P Assessment and Plan (1) Acute pancreatitis: Onset Date: ~03/06/20 Qualifiers: Acute pancreatitis complication: unspecified Pancreatitis type: unspecified pancreatitis type Qualified Code(s): K85.90 - Acute pancreatitis without necrosis or infection, unspecified Code(s): K85.90 - Acute pancreatitis without necrosis or infection, unspecified Status: Acute Assessment and Plan: This is the main reason that I am asked to see the patient. So far the most likely etiologic agent is the elevated triglycerides. Patient strictly denies use of significant alcohol. He has no signs of stones on either the CT scan or the ultrasound that he has had. If his pancreatitis does not improve perhaps the MRCP is reasonable to rule out a single stone moving from the gallbladder into the bile duct. There is some chance he may have also passed a stone. Will work with you and GI to follow the patient. For now I agree with gradually advancing his diet and following his lipase. He has an unusual worsening picture on CT scan when the chemical picture of the decreasing lipase and liver enzymes is present. Patient did admit to me that he had started taking gcll-xwy-[id number] H2 ronda or PPI but neither of these typically lead to a side effect of pancreatitis from a med. He will check with his on the names of these. Right now I believe the most likely reason for his pancreatitis is his high lipids. If he worsens would consider MRCP to look at the bile duct to be sure there is not a single stone as noted above. Because his pain is still fairly severe I have decided to had around the clock ibuprofen 600 mg every 6 hours. Will see if adding this is background pain control will allow him to stretch out how often he takes the [place] that he is trying to use instead of IV pain medication now. Hopefully this will work. I checked with his and he was taken from anti edema over the counter review of its side effect profile does not reveal any significant chances that it causes pancreatitis. (2) Hepatic steatosis: Onset Date: Unknown Code(s): K76.0 - Fatty (change of) liver, not elsewhere classified Status: Acute Assessment and Plan: Most likely due to his overweight status and possible related to the now known diabetes. I would suggest patient go on a strict diabetic diet and try to lose weight. (3) Leukocytosis: Onset Date: ~03/06/20 Qualifiers: Leukocytosis type: unspecified Qualified Code(s): D72.829 - Elevated white blood cell count, unspecified Code(s): D72.829 - Elevated white blood cell count, unspecified Status: Acute Assessment and Plan: Unknown etiology Slightly worse today recheck tomorrow. (4) Hypertriglyceridemia: Onset Date: Unknown Code(s): E78.1 - Pure hyperglyceridemia Status: Acute Assessment and Plan: Unknown etiology (5) Newly diagnosed diabetes: Onset Date: Unknown Code(s): E11.9 - Type 2 diabetes mellitus without complications Status: Acute Assessment and Plan: Had a glucose of 450 upon evaluation in the ED. He will need continued follow-up and treatment for this. (6) Splenomegaly: Onset Date: ~03/06/20 Code(s): R16.1 - Splenomegaly, not elsewhere classified Status: Acute Assessment and Plan: Unknown etiology, Monospot is negative there is no lymphadenopathy on CT scan to suggest lymphoma at this time period hepatitis profile is negative and there is no signs of ascites or cirrhosis to suggest that would be the reason for this. (7) Elevated blood-pressure reading without diagnosis of hypertension: Onset Date: Unknown Code(s): R03.0 - Elevated blood-pressure reading, without diagnosis of hypertension Status: Acute Assessment and Plan: On [place] medication. This may be because of his pain however will need to be monitored an
[2020-03-10] MEDS: IBUPROFEN 600 MG TABLET PO (16:41)
[2020-03-10 17:54] LABS: Glucose Point of Care 231 (65-105)
[2020-03-10 22:00] VITALS: BP 154/68; PULSE 79; RESP 12; TEMP 36.3; O2SAT 96
[2020-03-10 22:07] LABS: Glucose Point of Care 288 (65-105)
[2020-03-11] MEDS: IBUPROFEN 600 MG TABLET PO ×3 (00:10→11:46)
[2020-03-11 04:47] LABS: Hepatitis B Core Ab Total Nonreactive (Nonreactive)
[2020-03-11 06:00] VITALS: BP 152/57; PULSE 88; RESP 12; TEMP 36.4; O2SAT 97
[2020-03-11 06:55] LABS: Basophils Absolute Auto 0.1 K/mm3 (0.0-0.1); Basophils Percent Auto 0.5 % (0.2-1.2); Eosinophils Absolute Auto 0.2 K/mm3 (0-0.3); Eosinophils Percent Auto 1.9 % (0-4.4); Hematocrit 38.8 % (42.0-52.0); Hemoglobin 12.8 g/dL (14.0-18.0); Immature Granulocyte Absolute 0.61 K/mm3 (0.00-0.031); Immature Granulocyte Percent A 4.8 % (0-0.5); Lymphocytes Absolute Auto 1.37 K/mm3 (0.9-3.2); Lymphocytes Percent Auto 10.7 % (18.3-44.2); Mean Corpuscular Hemoglobin 27.5 pg (26-34); Mean Corpuscular Volume 83.3 fl (80-100); Mean Platelet Volume 12.3 fl (7.4-10.4); Monocytes Percent Auto 15.2 % (2.6-8.5); Neutrophils Absolute Auto 8.6 K/mm3 (1.3-6.7); Neutrophils Percent Auto 66.9 % (45.5-73.1); Platelet Count Result 176 k/mm3 (150-375); Red Blood Count 4.66 M/mm3 (4.6-6.20); Red Cell Distribution Width 13.8 % (11.5-14.5); White Blood Count 12.8 K/mm3 (4.5-10.0)
[2020-03-11 07:05] LABS: Alanine Aminotransferase 52 U/L (4-50); Albumin Level 3.1 g/dL (3.5-5.1); Alkaline Phosphatase 113 U/L (38-126); Aspartate Amino Transferase 41 U/L (17-59); Blood Urea Nitrogen 10 mg/dL (9-20); Calcium 8.4 mg/dL (8.4-10.2); Carbon Dioxide 30 mmol/L (22-30); Chloride 101 mmol/L (98-107); Estimated CRCL calculation 206 ml/min; Estimated Glomerular Filt Rate > 60; Glucose 213 mg/dL (75-110); Potassium 3.2 mmol/L (3.4-5.0); Sodium 140 mmol/L (137-145)
[2020-03-11 07:38] LABS: Glucose Point of Care 212 (65-105)
[2020-03-11] MEDS: INSULIN DETEMIR 100 UNITS/ML 10 UNITS SUB-Q (07:47)
[2020-03-11] MEDS: INSULIN ASPART (*BKC) 100 UNITS/ML SUB-Q ×2 (07:48→11:47)
[2020-03-11] MEDS: POTASSIUM CHLORIDE 20 MEQ TABLET 40 MEQ PO (07:54)
[2020-03-11] MEDS: FAMOTIDINE 20 MG/2 ML VIAL IV PUSH (07:54)
[2020-03-11] MEDS: FENOFIBRATE 160 MG TABLET PO (07:54)
--- NOTE | 2020-03-11 10:59 | PM.DS ---
DS: Admitting Diagnosis Admitting Diagnosis Admitting Diagnosis: Acute pancreatitis without necrosis or infection, unspecified DS: Discharge Diagnosis Discharge Diagnosis (1) Acute pancreatitis: Onset Date: ~03/06/20 Qualifiers: Acute pancreatitis complication: unspecified Pancreatitis type: unspecified pancreatitis type Qualified Code(s): K85.90 - Acute pancreatitis without necrosis or infection, unspecified Code(s): K85.90 - Acute pancreatitis without necrosis or infection, unspecified Status: Acute Assessment and Plan: Patient reports 3 episodes of similar discomfort in the past which was resolved on his own when he stopped eating for few days. He presented due to severe pain is epigastric area without any relief. This is most likely due to undiagnosed/untreated diabetes and hypertriglyceridemia in the 1500's. No acute signs of gallstone pancreatitis, no recent alcohol use. His CT scan showed acute pancreatitis on arrival Right upper quadrant ultrasound showed hepatomegaly and hepatic steatosis. I repeated his CT scan of his abdomen 03/09/2020 showing acute interstitial pancreatitis. Persistent gallbladder distension most likely secondary to fasting. I talked to the radiologist who states there is some fluid and edema around the pancreas, and there is no signs of any findings suggestive of acute cholecystitis. There is no gallbladder wall thickening or ductal dilation. Today, he is doing better on a regular diet and pain is tolerated with Ibuprofen and [place] Patient's lipase had been normal the last few days. I talked to the surgeon, Dr. Clemons, who recommended continuing monitoring the patient, stating that there is no acute signs on the CT scan that is showing his gallbladder is involved her acute car. I called the radiologist to further interpret his CT on arrival and repeat CT and he does not believe further workup is warranted at this time, and did not believe he has acute cholecystitis, and if symptoms continue or any other concerns that he would recommend an MRCP to be completed. I did consult Dr. Stark, GI to evaluate the patient further secondary to his symptoms and pancreatitis and at this time he feels the patient is stable to be discharged home Patient will be discharged home to continue a low-fat diet, to take ibuprofen/Tylenol as needed for pain and we will given some narcotics for uncontrolled pain. He will need to follow-up with primary care provider within 1 week for further evaluation. (2) Abdominal distension: Code(s): R14.0 - Abdominal distension (gaseous) Status: Acute Assessment and Plan: Patient reports abdominal distension and decreased and his flatulence. Abdominal distension is improved today per the patient. CT abdomen does not show any signs of ileus, obstruction, or constipation. MiraLax was added as well as p.r.n. Colace to see if it helps with his symptoms. Patient had a bowel movement is feel much better. (3) Leukocytosis: Onset Date: ~03/06/20 Qualifiers: Leukocytosis type: unspecified Qualified Code(s): D72.829 - Elevated white blood cell count, unspecified Code(s): D72.829 - Elevated white blood cell count, unspecified Status: Acute Assessment and Plan: Patient has elevated white blood cell count since arrival. Most likely secondary to [place] [id number] today, most likely secondary to pain, With a normal neutrophil count. Repeat CT abdomen shows no acute infection at this time or abscess. He is not having any fevers or chills and vital signs are stable. (4) Newly diagnosed diabetes: Onset Date: Unknown Code(s): E11.9 - Type 2 diabetes mellitus without complications Status: Acute Assessment and Plan:
[2020-03-11 11:03] VITALS: BP 156/85; PULSE 80
--- NOTE | 2020-03-11 11:37 | WPDGIPROGNO ---
Progress Note: A&P Assessment and Plan (1) Acute pancreatitis: Onset Date: ~03/06/20 Qualifiers: Acute pancreatitis complication: unspecified Pancreatitis type: unspecified pancreatitis type Qualified Code(s): K85.90 - Acute pancreatitis without necrosis or infection, unspecified Code(s): K85.90 - Acute pancreatitis without necrosis or infection, unspecified Status: Acute Assessment and Plan: from uncontrolled DM and hyperTG already started on treatment with insulin and also fibrates tolerating low fat diet he can go home by gi standpoint and follow up office in 2-3 weeks (2) Newly diagnosed diabetes: Onset Date: Unknown Code(s): E11.9 - Type 2 diabetes mellitus without complications Status: Acute Assessment and Plan: on insulin, will follow up with pcp [id number] 13 (3) Hypertriglyceridemia: Onset Date: Unknown Code(s): E78.1 - Pure hyperglyceridemia Status: Acute Assessment and Plan: start on treatment, will need diet as well and follow up with pcp/rn new grad +/- endocrinology (4) Abdominal distension: Code(s): R14.0 - Abdominal distension (gaseous) Status: Acute Assessment and Plan: improved (5) Leukocytosis: Onset Date: ~03/06/20 Qualifiers: Leukocytosis type: unspecified Qualified Code(s): D72.829 - Elevated white blood cell count, unspecified Code(s): D72.829 - Elevated white blood cell count, unspecified Status: Acute Assessment and Plan: probably from pancreatitis, continue to monitor (6) Hepatic steatosis: Onset Date: Unknown Code(s): K76.0 - Fatty (change of) liver, not elsewhere classified Status: Acute Assessment and Plan: metabolic syndrome, DM hepatitis panel negative. Subjective Date/time seen: 03/11/20 11:37 Interval history: he has been tolerating soft diet, no more nausea and doing much better Review of Systems Review of Systems: All systems reviewed & are unremarkable except as noted in HPI and below Exam Const: General: comfortable and no acute distress Nutritional Appearance: overweight HENMT: General nose exam: Normal nares present Eyes: General: appearance normal, both eyes and all related structures Neck: Neck: no JVD Resp: Auscultation: clear to auscultation bilaterally Cardio: Rate: regular rate Rhythm: regular rhythm GI: Inspection: distended GI Palp: Yes Soft to palpation and No Firmness to palpation present (GI) Auscultation: normal bowel sounds Other: no rebound, mild distended Skin: General skin exam: normal color Neuro: General: gait normal Speech: normal speech Extrem: General: normal to inspection Psych: Mental Status: mental status grossly normal Objective Data Vital Signs Vital Signs: Vital Signs - 24 hr 03/10/20 14:00 03/10/20 22:00 03/11/20 06:00 Temperature 98.3 F 97.4 F L 97.6 F Pulse Rate 97 79 88 Respiratory Rate 18 12 12 Blood Pressure 168/96 H 154/68 H 152/57 H Pulse Oximetry 98 96 97 03/11/20 11:03 Temperature Pulse Rate 80 Respiratory Rate Blood Pressure 156/85 H Pulse Oximetry Intake/Output Intake/Output: Intake & Output 03/08/20 03/09/20 03/10/20 03/11/20 23:59 23:59 23:59 23:59 Intake Total 6345 4425 3215 880 Output Total 2100 1800 Balance 4245 2625 3215 880 Meds/Results Medications: Active Medications Generic Name Dose Route Start Last Admin Trade Name Freq PRN Reason Stop Dose Admin Acetaminophen 650 mg 03/10/20 07:07 Tylenol Tablet PO Q6H PRN Mild Pain (1-3) or Fever Hydrocodone Bitart/Acetaminophen 1 tab 03/09/20 19:19 03/11/20 10:05 [place] 5-325 Mg PO 1 tab Q4H PRN Administration Pain Rated 4-6 Hydrocodone Bitart/Acetaminophen 1 tab 03/10/20 07:07 03/11/20 04:52 [place] 7.5-325 Mg PO 1 tab Q4H PRN Administration Pain Rated 7-10 Diphenhydramine HCl 25 mg 03/06/20 14:56
[2020-03-11 12:46] LABS: Glucose Point of Care 268 (65-105)
--- NOTE | 2020-03-14 08:54 | PC.NURSE ---
Blood cx are negative
[2020-03-15 15:52] LABS: Hepatitis C Viral RNA PCR <15 IU/mL
== END 2020-03-11 14:05 | disposition home or self-care (01) | DRG 440 ==
LOC: ANHED 12:48 → ANH2MED 12:50
PROVIDERS: Nurse Practitioner; Physician Assistant; Admitting Provider Internal Medicine; Emergency Provider Emergency Medicine; PCP Physician Assistant; Visit Provider Family Medicine
DX: K85.80 Other acute pancreatitis without necrosis or infection (principal); R14.0 Abdominal distension (gaseous); D72.829 Elevated white blood cell count, unspecified; E11.9 Type 2 diabetes mellitus without complications; R79.89 Other specified abnormal findings of blood chemistry; K76.0 Fatty (change of) liver, not elsewhere classified; E78.1 Pure hyperglyceridemia; R03.0 Elevated blood-pressure reading, without diagnosis of hypertension; R16.1 Splenomegaly, not elsewhere classified; K21.9 Gastro-esophageal reflux disease without esophagitis; F17.210 Nicotine dependence, cigarettes, uncomplicated; E66.9 Obesity, unspecified; Z68.38 Body mass index [BMI] 38.0-38.9, adult
CPT/HCPCS: 36415; 74176; 74177; 76705; 80048; 80053; 80061; 81001; 81256; 82607; 82728; 82746; 83036; 83540; 83550; 83690; 83735; 84132; 85025; 86308; 86703; 86704; 86705; 86706; 86709; 86803; 87040; 87340; 87522; 96361; 96374; 96375; 96376; 99285; A9270; G0432; J0131; J0360; J1170; J1756; J1815; J1885; J2060; J2270; J2405; J7030; Q9967

== ENCOUNTER 2020-04-03 10:50 | Outpatient (RCR) | payer OTHER, SELFPAY | END 2020-07-02 23:59 | disposition home or self-care (01) | LOC: ANHDMC 10:50 | PROVIDERS: PCP Physician Assistant | DX: E11.65 Type 2 diabetes mellitus with hyperglycemia (principal); Z71.89 Other specified counseling | CPT/HCPCS: G0108 ==

== ENCOUNTER 2020-04-10 07:03 | Outpatient (CLI) | payer OTHER, SELFPAY ==
[2020-04-10 07:43] LABS: Alanine Aminotransferase 42 U/L (4-50); Albumin Level 4.4 g/dL (3.5-5.1); Alkaline Phosphatase 69 U/L (38-126); Aspartate Amino Transferase 29 U/L (17-59); Bilirubin,Total 0.4 mg/dL (0.2-1.3); Blood Urea Nitrogen 21 mg/dL (9-20); Calcium 9.2 mg/dL (8.4-10.2); Carbon Dioxide 24 mmol/L (22-30); Chloride 106 mmol/L (98-107); Cholesterol 172 mg/dL (0-200); Estimated Glomerular Filt Rate > 60; Glucose 182 mg/dL (75-110); HDL Direct 33 mg/dL; Potassium 4.2 mmol/L (3.4-5.0); Sodium 140 mmol/L (137-145); Triglycerides 228 mg/dL (<150)
[2020-04-10 07:48] LABS: Hemoglobin A1C 9.4 % (<5.7)
[2020-04-10 07:54] LABS: LDL Cholesterol Direct 98 mg/dL
[2020-04-10 08:02] LABS: Creatinine Urine 172.6 mg/dL
[2020-04-10 08:18] LABS: Free T4 Free Thyroxine 1.04 ng/mL (0.78-2.19)
[2020-04-10 08:46] LABS: MALB Creatinine Ratio 326.1 mg/g (0-30); Microalbumin Urine Random 562.8 mg/L (0-16.7)
[2020-04-13 05:56] LABS: Thyroid Peroxidase Antibodies <1 IU/mL (<9)
[2020-04-13 16:04] LABS: Glutamic acid decarboxylase AA <5 IU/mL (<5)
[2020-04-14 14:05] LABS: C-Peptide 2.09 ng/mL (0.80-3.85); Triiodothyronine T3 Free 3.7 pg/mL (2.3-4.2)
== END 2020-04-10 07:04 | disposition home or self-care (01) ==
PROVIDERS: PCP Physician Assistant; Visit Provider Internal Medicine Endocrinology, Diabetes & Metabolism
DX: E11.65 Type 2 diabetes mellitus with hyperglycemia (principal); E78.2 Mixed hyperlipidemia; R63.4 Abnormal weight loss
CPT/HCPCS: 36415; 80053; 80061; 82043; 83036; 84439; 84443; 84481; 84681; 86341; 86376

== ENCOUNTER 2021-01-04 13:18 | Outpatient (CLI) | payer OTHER, SELFPAY ==
[2021-01-04 13:41] LABS: Basophils Percent Auto 0.3 % (0.2-1.2); Eosinophils Absolute Auto 0.2 K/mm3 (0-0.3); Eosinophils Percent Auto 1.6 % (0-4.4); Hematocrit 49.4 % (42.0-52.0); Hemoglobin 17.4 g/dL (14.0-18.0); Immature Granulocyte Absolute 0.08 K/mm3 (0.00-0.031); Immature Granulocyte Percent A 0.6 % (0-0.5); Lymphocytes Absolute Auto 2.94 K/mm3 (0.9-3.2); Lymphocytes Percent Auto 22.8 % (18.3-44.2); Mean Corpuscular HGB Conc 35.2 g/dl (32-36); Mean Corpuscular Hemoglobin 29.2 pg (26-34); Mean Platelet Volume 11.2 fl (7.4-10.4); Monocytes Absolute Auto 1.2 K/mm3 (0.1-0.6); Monocytes Percent Auto 9.2 % (2.6-8.5); Neutrophils Absolute Auto 8.4 K/mm3 (1.3-6.7); Neutrophils Percent Auto 65.5 % (45.5-73.1); Platelet Count Result 208 k/mm3 (150-375); Red Blood Count 5.95 M/mm3 (4.6-6.20); Red Cell Distribution Width 12.9 % (11.5-14.5); White Blood Count 12.9 K/mm3 (4.5-10.0)
[2021-01-04 13:49] LABS: Hemoglobin A1C 8.2 % (<5.7)
[2021-01-04 14:00] LABS: Alanine Aminotransferase 74 U/L (4-50); Albumin Level 4.7 g/dL (3.5-5.1); Alkaline Phosphatase 101 U/L (38-126); Anion Gap 9 mmol/L (8-16); Aspartate Amino Transferase 44 U/L (17-59); Bilirubin,Total 0.4 mg/dL (0.2-1.3); Blood Urea Nitrogen 17 mg/dL (9-20); Carbon Dioxide 25 mmol/L (22-30); Chloride 105 mmol/L (98-107); Cholesterol 174 mg/dL (0-200); Estimated Glomerular Filt Rate > 60; Glucose 212 mg/dL (75-110); Potassium 4.4 mmol/L (3.4-5.0); Sodium 139 mmol/L (137-145)
[2021-01-04 14:04] LABS: LDL Cholesterol Direct 41 mg/dL; Triglycerides 728 mg/dL (<150)
[2021-01-04 16:46] LABS: Free T4 Free Thyroxine 0.91 ng/mL (0.78-2.19)
== END 2021-01-04 13:19 | disposition home or self-care (01) ==
PROVIDERS: PCP Physician Assistant; Referring Provider Internal Medicine Endocrinology, Diabetes & Metabolism; Visit Provider Physician Assistant
DX: E11.65 Type 2 diabetes mellitus with hyperglycemia (principal); E78.5 Hyperlipidemia, unspecified; Z79.899 Other long term (current) drug therapy
CPT/HCPCS: 36415; 80053; 80061; 83036; 84439; 84443; 85025

== ENCOUNTER 2021-07-19 07:24 | Outpatient (CLI) | payer OTHER, SELFPAY ==
[2021-07-19 08:05] LABS: Creatinine Urine 86.2 mg/dL
[2021-07-19 08:07] LABS: Hemoglobin A1C 7.6 % (<5.7)
[2021-07-19 08:10] LABS: MALB Creatinine Ratio 128.9 mg/g (0-30); Microalbumin Urine Random 111.1 mg/L (0-16.7)
[2021-07-19 08:15] LABS: Alanine Aminotransferase 96 U/L (4-50); Albumin Level 4.3 g/dL (3.5-5.1); Alkaline Phosphatase 89 U/L (38-126); Anion Gap 13 mmol/L (8-16); Aspartate Amino Transferase 54 U/L (17-59); Bilirubin,Total 0.7 mg/dL (0.2-1.3); Blood Urea Nitrogen 22 mg/dL (9-20); Carbon Dioxide 21 mmol/L (22-30); Chloride 109 mmol/L (98-107); Cholesterol 199 mg/dL (0-200); Estimated Glomerular Filt Rate > 60; Glucose 238 mg/dL (65-110); Potassium 4.7 mmol/L (3.4-5.0); Sodium 143 mmol/L (137-145)
[2021-07-19 08:16] LABS: LDL Cholesterol Direct 62 mg/dL; Triglycerides 874 mg/dL (<150)
[2021-07-19 08:32] LABS: Free T4 Free Thyroxine 1.19 ng/mL (0.78-2.19)
== END 2021-07-19 07:25 | disposition home or self-care (01) ==
LOC: ANHLAB 07:26
PROVIDERS: PCP Physician Assistant
DX: E11.65 Type 2 diabetes mellitus with hyperglycemia (principal); E78.2 Mixed hyperlipidemia
CPT/HCPCS: 36415; 80053; 80061; 82043; 83036; 84439; 84443